=== PATIENT | male | born 1945 | race Caucasian/White ===

== ENCOUNTER → 2016-04-19 15:34 | Outpatient (CLI) | payer MEDICARE ==
[~2016-04-19 15:34] MED LIST: BENADRYL25 MG PO; CELEXA20 MG PO; ELIQUIS2.5 MG PO; NAPROSYN500 MG PO; NIACIN500 MG PO; OMEPRAZOLE20 M1 PO; OXYCODONE HCL5 MG PO; SYNTHROID112 MCG PO; ZESTRIL10 MG PO
[2016-05-22 09:38] VITALS: BMI 31.7
== END | disposition home or self-care (01) ==
LOC: D.LABREF 15:34
DX: M17.11 Unilateral primary osteoarthritis, right knee (principal); Z11.8 Encounter for screening for other infectious and parasitic diseases

== ENCOUNTER 2016-05-17 09:30 | Inpatient (IN) | payer MEDICARE ==
[~2016-05-17] VITALS: Ht 167.6 cm; Wt 89.1 kg
[2016-05-17 09:29] LABS: BASOPHILS 0.4 % (0.0-2.0); EOSINOPHILS 3.3 % (0-7); HEMATOCRIT 45.7 % (42.0-54.0); HEMOGLOBIN 15.4 g/dL (13.5-17.5); IMMATURE GRANULOCYTES 0.3 % (0-5); LYMPHOCYTES 18.1 % (15-50); MCH 29.1 pg (26.0-34.0); MCHC 33.7 g/dL (31.0-37.0); MCV 86.4 fL (80.0-100.0); MEAN PLATELET VOLUME 9.5 fL (7.4-10.4); MONOCYTES 9.4 % (2-11); NEUTROPHILS 68.5 % (40-80); PLATELET COUNT 204 10x3/uL (130-400); RBC 5.29 10x6/uL (4.20-6.10); RDW 13.8 % (11.5-14.5); WBC 7.4 10x3/uL (4.8-10.8)
[~2016-05-17 09:30] MED LIST changes: -ELIQUIS2.5 MG PO; -OXYCODONE HCL5 MG PO
[2016-05-17 09:41] LABS: APTT 32.3 SECONDS (22.8-39.4)
[2016-05-17 09:42] LABS: ANION GAP 10.8 mmol/L (8-16); CARBON DIOXIDE 30.3 mmol/L (21.0-32.0); CREATININE - SERUM 1.3 mg/dL (0.6-1.3); POTASSIUM - SERUM 4.1 mmol/L (3.5-5.1)
[2016-05-17 09:46] LABS: APPEARANCE CLEAR (CLEAR); BILIRUBIN NEGATIVE (NEGATIVE); COLOR YELLOW (YELLOW); GLUCOSE NEGATIVE (NEGATIVE); KETONE NEGATIVE (NEGATIVE); LEUKOCYTE ESTERASE NEGATIVE (NEGATIVE); NITRITE NEGATIVE (NEGATIVE); PROTEIN NEGATIVE (NEGATIVE); SPECIFIC GRAVITY 1.015 (1.005-1.020); UROBILINOGEN NORMAL (NORMAL)
[2016-05-22] VITALS (12 sets, daily range): BP systolic 101–133; BP diastolic 45–79; Ht 167.6 cm; Wt 89.1 kg
--- NOTE | 2016-05-22 08:59 | NUR ---
PRE OPERATIVE O2 PER ANESTHESIS WAS 93% WITHOUT O2.
--- NOTE | 2016-05-22 09:13 | NUR ---
RECEIVED TO ROOM 2210 FROM RECOVERY ROOM VIA BED. VSS. ON ROOM AIR AT THIS TIME. ORIENTED TO ROOM AND CALL LIGHT. SCDs TO BLE. ICE TO KNEE. BED ALARM TURNED ON. PASSWORD AND EMERGENCY CONTACT OBTAINED. FAMILY AT BEDSIDE. BREAKFAST TRAY ORDERED. IS GIVEN TO PATIENT AND EXPLAINED WITH RETURN DEMONSTRATION. CALL LIGHT IN REACH. WILL CONTINUE WITH PLAN OF CARE.
--- NOTE | 2016-05-22 09:47 | NUR ---
AM MEDS ADMINISTERED PER ORDER. CALL LIGHT IN REACH.
--- NOTE | 2016-05-22 10:19 | NUR ---
ARTURO MARSH, IN ROOM.
--- NOTE | 2016-05-22 11:23 | NUR ---
ASSISTED PATIENT WITH TURNING ON HIS LEFT SIDE. ALSO COUGHED AND DEEP BREATH.
--- NOTE | 2016-05-22 12:55 | NUR ---
ANCEF 1 GM IVPB. TYLENOL AND PROTONIX PO. CALL LIGHT IN REACH.
--- NOTE | 2016-05-22 12:58 | NUR ---
VOIDED 150 CC IN URINAL.
--- NOTE | 2016-05-22 14:29 | NUR ---
* Is the patient Alert and Oriented? Yes 0 * How many steps to enter\exit or inside your home? 0 0 * PCP Dr. Ochoa 0 * Pharmacy [facility] in [place] 0 * Preadmission Environment Home with Family 0 * ADLs Independent 0 * Equipment Cane Rolling Walker Shower Chair 0 * List name and contact numbers for known caregivers / representatives who currently or will assist patient after discharge: Spouse - Tootie [phone] 0 * Additional services required to return to the preadmission environment? Yes 0 * Can the patient safely return to the preadmission environment? Yes 0 * Has this patient been hospitalized within the prior 30 days at any hospital? No 05/22/2016 14:29 DCP: Discharge Planning Patient Name: RUSS JOHN Admission Status: Elective Accout number: [id number] Admission Date: 05-22-2016 : 1945 Admission Diagnosis: Attending: JOSE DAVID Current LOS: 1 Anticipated DC Date: 05-24-2016 Planned Disposition: Outpatient PT\OT Primary Insurance: [employer] ADV Discharge Planning Comments: CM met with patient to assess dc plans/needs. Patient lives at home with his , Tootie. He reports he is independent with all ADL's & IADL's. He has a rolling walker, cane and shower chair at home. At dc, he will return home with his . He has chosen [facility] for outpatient physical therapy - appt. scheduled for 05/28 @ 1330. Anticipate dc 05/24. CM will follow. Parking Enforcement Technician: Yanely Colvin
--- NOTE | 2016-05-22 14:46 | NUR ---
STATES PAIN IS UP TO AN 8. TORADOL 15 MG SIVP PER SCHEDULE. IF PAIN DOES NOT GO DOWN WILL GIVE OXY IR
--- NOTE | 2016-05-22 15:36 | NUR ---
PAIN IS NOW AT A 4. WILL GIVE OXY IR ONE HOUR BEFORE CPM.
--- NOTE | 2016-05-22 17:05 | NUR ---
OXY IR 10 MG AND TYLENOL PO. CALL LIGHT IN REACH.
--- NOTE | 2016-05-22 18:07 | NUR ---
NO CHANGES IN INITILA ASSESSMENT. BED ALARM ON. CPM PLACED ON. SCDs TO BLE. CALL LIGHT IN REACH. ICE PACK REFILLED. WILL CONTINUE WITH PLAN OF CARE.
[2016-05-23] VITALS: BP 108/55
[2016-05-23 04:00] VITALS: BP 109/51
--- NOTE | 2016-05-23 04:37 | NUR ---
PATIENT ON CPM. BROUGHT PATIENT WATER PER HIS REQUEST. PATIENT DENIES OTHER NEEDS AT THIS TIME. BED IN LOWEST POSITION AND CALL LIGHT WITHIN REACH.
[2016-05-23 06:12] LABS: HEMATOCRIT 39.2 % (42.0-54.0); HEMOGLOBIN 12.7 g/dL (13.5-17.5); MCH 28.2 pg (26.0-34.0); MCHC 32.4 g/dL (31.0-37.0); MCV 87.1 fL (80.0-100.0); MEAN PLATELET VOLUME 9.8 fL (7.4-10.4); PLATELET COUNT 187 10x3/uL (130-400); RDW 13.6 % (11.5-14.5)
[2016-05-23 06:37] LABS: ANION GAP 12.6 mmol/L (8-16); CALCIUM 8.1 mg/dL (8.5-10.1); CREATININE - SERUM 1.6 mg/dL (0.6-1.3); POTASSIUM - SERUM 4.6 mmol/L (3.5-5.1)
[2016-05-23 06:38] LABS: ALBUMIN 3.2 g/dL (3.4-5.0); BILIRUBIN - TOTAL 0.38 mg/dL (0.2-1.3)
--- NOTE | 2016-05-23 07:30 | NUR ---
REPORT RECEIVED FROM COMPUTED TOMOGRAPHY TECHNICIAN NURSE. CALL LIGHT IN REACH.
[2016-05-23 08:02] LABS: LYMPHOCYTES 9 % (15-50); MONOCYTES 8 % (2-11); NEUTROPHILS 81 % (40-80)
[2016-05-23 08:03] LABS: ANISOCYTOSIS OCC; PLATELET ESTIMATE NORMAL; ROULEAUX OCC
[2016-05-23 08:15] VITALS: BP 91/40
--- NOTE | 2016-05-23 08:36 | NUR ---
ASSESSMENT COMPLETED. AM MEDS ADMINISTERED. IV SL'D PER ORDER. SCDs TO BLE. BED ALARM ON. MARTA CONTINUE WITH PLAN OF CARE.
--- NOTE | 2016-05-23 10:21 | NUR ---
pt seen and assessed for wage adjuster note. currently up in chair with spouse at bedside. right knee wrapped with radhames wrap able to move toes freely and are warm and pink. states pain level 0/10. call light in reach
[2016-05-23 12:26] VITALS: BP 98/45
--- NOTE | 2016-05-23 12:40 | NUR ---
SITTING IN CHAIR PER PT EATING LUNCH. WILL GET BACK IN BED AFTER HE WALKS AGAIN.
--- NOTE | 2016-05-23 14:59 | NUR ---
TORADOL 15 MG SIVP PER ORDER. ASSISTED BACK TO BED. CALL LIGHT IN REACH.
[2016-05-23 15:40] VITALS: BP 113/60
--- NOTE | 2016-05-23 16:30 | NUR ---
DENIES NEEDS AT THIS TIME. CALL LIGHT IN REACH.
--- NOTE | 2016-05-23 18:00 | NUR ---
CPM ON. URINE SAMPLE COLLECTED AND SENT TO LAB. NO CHANGES IN INITIAL ASSESSMENT. ICE PACK FILLED. SCDs TO BLE. BED ALARM ON. CALL LIGHT IN REACH. WILL CONTINUE WITH PLAN OF CARE.
[2016-05-23 18:53] LABS: APPEARANCE CLEAR (CLEAR); BILIRUBIN NEGATIVE (NEGATIVE); COLOR YELLOW (YELLOW); GLUCOSE NEGATIVE (NEGATIVE); KETONE NEGATIVE (NEGATIVE); LEUKOCYTE ESTERASE NEGATIVE (NEGATIVE); NITRITE NEGATIVE (NEGATIVE); PROTEIN NEGATIVE (NEGATIVE); UROBILINOGEN NORMAL (NORMAL)
[2016-05-23 19:00] VITALS: BP 105/50
--- NOTE | 2016-05-23 19:50 | NUR ---
PATIENT RESTING IN BED AND STATED HE HAS NO PAIN AT THIS TIME. CALL LIGHT WITHIN REACH AND BED IN LOWEST POSITION.
[2016-05-24] VITALS: BP 109/62
--- NOTE | 2016-05-24 00:23 | NUR ---
RECIEVED PT LYING IN BED RESTING WITH EYES CLOSED, NO DISTRESS NOTED, SR'S UP, CL IN REACH
--- NOTE | 2016-05-24 01:16 | NUR ---
PRN OXY IR GIVEN FOR C/O R KNEE PAIN 08/08, FRANK WELL, DENIES FURTHER NEEDS, CL IN REACH
[2016-05-24 04:00] VITALS: BP 115/64
[2016-05-24 05:42] LABS: BASOPHILS 0.3 % (0.0-2.0); EOSINOPHILS 2.5 % (0-7); HEMATOCRIT 38.5 % (42.0-54.0); HEMOGLOBIN 12.3 g/dL (13.5-17.5); IMMATURE GRANULOCYTES 0.2 % (0-5); LYMPHOCYTES 14.6 % (15-50); MCH 28.1 pg (26.0-34.0); MCHC 31.9 g/dL (31.0-37.0); MCV 88.1 fL (80.0-100.0); MEAN PLATELET VOLUME 10.1 fL (7.4-10.4); MONOCYTES 11.3 % (2-11); NEUTROPHILS 71.1 % (40-80); PLATELET COUNT 178 10x3/uL (130-400); RBC 4.37 10x6/uL (4.20-6.10)
[2016-05-24 05:58] LABS: WBC 10.3 10x3/uL (4.8-10.8)
[2016-05-24 06:04] LABS: ALBUMIN 2.9 g/dL (3.4-5.0); BILIRUBIN - TOTAL 0.4 mg/dL (0.2-1.3); CALCIUM 8.1 mg/dL (8.5-10.1); CARBON DIOXIDE 29.2 mmol/L (21.0-32.0); CREATININE - SERUM 1.5 mg/dL (0.6-1.3); POTASSIUM - SERUM 4.2 mmol/L (3.5-5.1); PROTEIN - SERUM 6.3 g/dL (6.4-8.2)
[2016-05-24] MEDS ORDERED: OXYCODONE HCL5 MG PO (07:53)
[2016-05-24] MEDS ORDERED: ELIQUIS2.5 MG PO (07:53)
[2016-05-24 08:02] VITALS: BP 124/71
--- NOTE | 2016-05-24 08:37 | NUR ---
05/24/2016 8:37 DCP: Discharge Planning Patient Name: RUSS JOHN Encounter No: [id number] : 1945 Primary Insurance: [employer] ADV Anticipated DC Date: 05-24-2016 Planned Disposition: Outpatient PT\OT External Planned Provider: [facility] DCP follow-up note: DC order rec'd. Patient and family in agreement with discharge plan. No changes to plan. Case management will follow and assist as needed. Yanely Colvin
--- NOTE | 2016-05-24 08:43 | NUR ---
AWAKE AND ALERT. ORIENTED X3. NO C/O AT THIS TIME. CPM REMOVED NOW. LUNGS ARE CLEAR BILATERALLY, NO COUGH NOTED. PATIENT REPORTS OCCASSIONAL PRODUCTIVE COUGH. SKIN IS INTACT WITHOUT REDNESS EXCEPT INCISION TO RIGHT KNEE WHICH HAS A DRY INTACT DRESSING IN PLACE. SCD'S IN PLACE. SL TO LEFT FOREARM PATENT WITHOUT REDNESS AT INSERTION SITE. DENIES NEEDS.
--- NOTE | 2016-05-24 09:30 | NUR ---
AMBULATED IN HALLWAY WITH PT USING RW. DID WELL. REQUESTED AND GIVEN 10MG OXY IR PO FOR C/O RIGHT KNEE PAIN LEVEL 10. WILL MONITOR.
--- NOTE | 2016-05-24 12:55 | NUR ---
DRESSING CHANGED TO RIGHT KNEE PER ORDERS. WILL D/C SOON.
--- NOTE | 2016-05-24 13:25 | NUR ---
DISCHARGED TO HOME AMBULATORY WITH FAMILY. DISCHARGE INSTRUCTIONS GIVEN BOTH VERBALLY AND WRITTEN. ALL QUESTIONS ANSWERED. PATIENT AND FAMILY VERBALIZED UNDERSTANDING OF SAME. NEEDED PRESCRIPTIONS GIVEN TO PATIENT.
--- NOTE | 2016-05-29 12:19 | HP ---
PATIENT: RUSS JOHN MEDICAL RECORD: [id number] ACCOUNT: [id number] LOCATION:D.MS [address] : [birth year] ADMISSION DATE: 05/22/16 HISTORY AND PHYSICAL EXAMINATION HISTORY OF PRESENT ILLNESS: This is a pleasant 70-year-old gentleman who has had increasing pain in his right knee. This has got to a juncture where he is no longer tolerating it. He has tried therapy, injections and he is not getting any better, wants to proceed now with surgery. He does not have any allergies. PAST SURGICAL HISTORY: He has a right knee scope, surgery for prostate cancer and a back surgery. SOCIAL HISTORY: He does not smoke and he does not drink. REVIEW OF SYSTEMS: Otherwise, negative. MEDICATIONS: He had been taking Benadryl, cephalexin, citalopram, Kenalog, lisinopril, Robaxin, Naprosyn, niacin and omeprazole. PHYSICAL EXAMINATION: VITAL SIGNS: His height is 5 feet 6 inches, his weighs 194, blood pressure 151/86, pulse is 68, BMI was 31.3. HEENT: Within normal limits. CARDIOVASCULAR: Regular rate and rhythm. LUNGS: Clear. ABDOMEN: Benign. 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 He has crepitus. His range of motion 0 to about 110 degrees. He has no ligamentous instability. He is neurovascularly intact. IMAGING: X-rays showing [id number] medially. ASSESSMENT: Right knee degenerative joint disease. PLAN: Right total knee arthroplasty. After discussion, we will get him admitted ____. TRANSINT:[id number] Voice Confirmation ID: [id number] DOCUMENT ID: [id number] KARLA COLLINS MD at 1219 CC: [id number] DICTATION DATE: 05/22/16 0852 PROSTHODONTIST/EDUCATOR: 05/22/16 1116 DIS IN 05/24/[address] [address]
--- NOTE | 2016-05-29 12:19 | OP ---
PATIENT NAME: RUSS JOHN MEDICAL RECORD: [id number] :[birth year] LOCATION:D.MS [address] ADMISSION DATE:05/22/16 SURGEON: KARLA LOPEZ MD DATE OF OPERATION: 05/22/2016 PREOPERATIVE DIAGNOSIS: Right knee degenerative joint disease. POSTOPERATIVE DIAGNOSIS: Right knee degenerative joint disease. PROCEDURE PERFORMED: Right total knee arthroplasty. SURGEON: Dustin Lopez MD. ANESTHESIA: General with a block for postop pain. CONDITION: The patient tolerated procedure well and was transferred to recovery room in stable condition at termination of the procedure. INDICATIONS: This is a pleasant 70-year-old gentleman with advanced degenerative changes of his right knee. This has gotten to a juncture where he is no longer tolerating the knee, wanted to proceed with the knee replacement. We did discuss the risks, benefits, and alternatives of this. He understood and wished to proceed. OPERATIVE REPORT: The patient was taken to the operating room, placed in supine position. Right knee was confirmed to be the correct knee. He has had the block placed preoperatively. His right knee was then prepped and draped after a timeout verifying it to be the correct site. After initial prep and drape, he had a secondary ChloraPrep and then Ioban dressing placement. The leg was exsanguinated and tourniquet was elevated to 350. Midline incision was made followed by a medial parapatellar incision. The fat pad was excised, the medial meniscus and lateral meniscus for better visualization. I then drilled into the femur, placed the guide and made a distal femoral cut and then sized the femur to 67.5 and made the rest of the distal femoral cuts. I then subluxed the tibia forward, took, placed the guide and made a proximal tibial cut. This was sized at a 71. I then placed my femur with the tibial tray, took it through range of motion and marking the rotation then went back and punched for a 71 tibia. I also took out posterior osteophytes. The backside of the patella was taken off and measured, this was a 31, the 3 peg holes were drilled. I then copiously irrigated, following which I cemented into place a 67 femur, 71 tibia with a 31 three peg hole patellar button. He was held in extension while the cement dried. Once the cement was dry, he was irrigated and final 14 poly was placed. He was closed with #1 suture followed by 2-0 Vicryl followed by rome. He tolerated this well, was awakened and transferred to recovery in stable condition, having tolerated the procedure well. TRANSINT:[id number] Voice Confirmation ID: [id number] DOCUMENT ID: [id number] OPERATIVE REPORT [id number] RUSS JOHN, KARLA LOPEZ MD at 1219 CC: [id number] DICTATION DATE: 05/22/16 0851 CHESS INSTRUCTOR: 05/22/16 1517 DIS IN 05/24/16 [facility] [address] [place] [address]
--- NOTE | 2016-06-12 16:33 | DS ---
PATIENT:RUSS JOHN :[birth year] MEDICAL RECORD: [id number] DISCHARGE SUMMARY ADMISSION DATE: 05/22/16 DISCHARGE DATE: 05/24/16 DATE OF ADMISSION: 05/22/2016 DATE OF DISCHARGE: 05/24/2016 ADMITTING DIAGNOSIS: Right knee degenerative joint disease. DISCHARGE DIAGNOSIS: Right knee degenerative joint disease. PROCEDURE PERFORMED: A right total knee arthroplasty. HOSPITAL COURSE: A pleasant 70-year-old gentleman, who presents with right knee DJD. This has been getting progressively worse. He is no longer tolerating nonoperative treatments. He is admitted for right total knee arthroplasty. This procedure went well. He was felt by the second day that he be discharged and continue with home outpatient physical therapy. He is going to continue on his anticoagulation therapy on pain medicines and his protocols for continued knee rehabilitation. He understood wound care as well, his discharge diagnoses being right knee degenerative joint disease and postop acute blood loss anemia. Plan is to see me back in the office in about 2 weeks. He is to call if he is having any problems. TRANSINT:[id number] Voice Confirmation ID: [id number] DOCUMENT ID: [id number] KARLA COLLINS MD at 1633 CC: [id number] DICTATION DATE: 06/05/16 1014 COOLING TOWER OPERATOR: 06/05/168 DIS IN 05/24/16 [facility] [address] [place] [address]
== END 2016-05-24 13:25 | disposition home or self-care (01) | DRG 470 ==
LOC: D.SDCHOLD 05-22 06:32 → D.MS 05-22 06:32 → D.SDCHOLD 05-22 07:00 → D.MS 05-22 08:36 → D.SDCHOLD 05-22 09:30 → D.MS 05-24 13:25
PROVIDERS: Family Medicine; ADMIT Orthopaedic Surgery Sports Medicine
PROC: 0SRC0J9 Replacement of Right Knee Joint with Synthetic Substitute, Cemented, Open Approach (ICD-10-PCS; principal; 2016-05-22 07:30)
DX: M17.11 Unilateral primary osteoarthritis, right knee (principal); D62 Acute posthemorrhagic anemia; M25.761 Osteophyte, right knee; E03.9 Hypothyroidism, unspecified; I10 Essential (primary) hypertension; E06.3 Autoimmune thyroiditis; M54.5 Low back pain; K21.9 Gastro-esophageal reflux disease without esophagitis; E78.5 Hyperlipidemia, unspecified

== ENCOUNTER → 2016-09-24 14:35 | Outpatient (CLI) | payer MEDICARE ==
[2016-05-22 09:38] VITALS: BMI 31.7
[~2016-09-24 14:35] MED LIST changes: +ELIQUIS2.5 MG PO; +OXYCODONE HCL5 MG PO
== END | disposition home or self-care (01) ==
LOC: D.US 14:30
DX: M79.661 Pain in right lower leg (principal); R60.0 Localized edema

== ENCOUNTER 2019-01-13 22:59 | Observation (INO) | payer OTHER ==
[~2019-01-13] VITALS: Ht 167.6 cm; Wt 86.4 kg
[~2019-01-13 22:59] MED LIST changes: +AUGMENTIN 875-11 TAB PO; +PLAVIX75 MG PO
[2019-01-13 23:58] LABS: HEMATOCRIT 42.9 % (42.0-54.0); HEMOGLOBIN 14.9 g/dL (13.5-17.5); LYMPHOCYTES 8.7 % (15-50); MCH 29.6 pg (26.0-34.0); MCHC 34.7 g/dL (31.0-37.0); MCV 85.1 fL (80.0-100.0); MEAN PLATELET VOLUME 9.8 fL (7.4-10.4); NEUTROPHILS 88.1 % (40-80); RBC 5.04 10x6/uL (4.20-6.10); RDW 12.9 % (11.5-14.5); WBC 12.1 10x3/uL (4.8-10.8)
[2019-01-13 23:59] LABS: PLATELET COUNT 171 10x3/uL (130-400)
[2019-01-14 00:06] LABS: INR 1.02 (0.85-1.17); PROTIME 12.9 SECONDS (11.6-15.0)
[2019-01-14 00:07] LABS: ALBUMIN 3.9 g/dL (3.4-5.0); ALKALINE PHOSPHATASE 90 U/L (46-116); ALT (SGPT) 36 U/L (10-68); BILIRUBIN - TOTAL 0.36 mg/dL (0.2-1.3); CALC OSMOLALITY 285 mosm/kg (275-300); CALCIUM 8.7 mg/dL (8.5-10.1); CARBON DIOXIDE 27.7 mmol/L (21.0-32.0); CHLORIDE - SERUM 105 mmol/L (98-107); CREATININE - SERUM 1.5 mg/dL (0.6-1.3); POTASSIUM - SERUM 4.7 mmol/L (3.5-5.1); PROTEIN - SERUM 7.5 g/dL (6.4-8.2); SODIUM 139 mmol/L (136-145); UREA NITROGEN 20 mg/dL (7-18); eGFR NON AFRICAN AMERICAN 49 mL/min (90-120)
[2019-01-14 00:08] LABS: GLUCOSE 183 mg/dL (74-106)
[2019-01-14 00:20] LABS: CKMB 2.6 U/L (0.0-3.6); CREATINE KINASE 141 UL (21-232); MAGNESIUM - SERUM 2.1 mg/dL (1.8-2.4); TROPONIN-I < 0.017 ng/mL (0.000-0.060)
[2019-01-14 02:57] VITALS: Ht 167.6 cm; Wt 86.4 kg
--- NOTE | 2019-01-14 07:48 | NUR ---
AWAKE AND ORIENTED. DENIES ANY NEEDS. TELEMERTY SHOWS SR. RIGHT AC SL. NPO UNTILL SEEN BY DOCTOR. UP AB GABRIELLE. WILL MONITOR
[2019-01-14 09:13] VITALS: BP 114/66
--- NOTE | 2019-01-14 10:14 | HP ---
PATIENT: RUSS YODER MEDICAL RECORD: [id number] ACCOUNT: [id number] LOCATION:[address] : [birth year] ADMISSION DATE: 01/14/19 PCP: No PCP HISTORY AND PHYSICAL EXAMINATION DIAGNOSES: 1. Chest pain. 2. Coronary artery disease. 3. Previous percutaneous transluminal coronary angioplasty stent. 4. Gastroesophageal reflux disease. 5. Hypertension. 6. Nausea and vomiting. 7. Shortness of breath, dyspnea on exertion. HISTORY OF PRESENT ILLNESS: Mr. Yoder has a past history of coronary artery disease with myocardial infarction and PTCA stent approximately 2 years ago. He did well until yesterday. Early in the day, he noticed that he was significantly more short of breath and dyspneic. He then developed nausea and vomiting. After that, he developed chest discomfort. He does have a history of GERD. The chest discomfort was similar to the discomfort he had with his myocardial infarction; however, not nearly as bad. He had then multiple episodes of vomiting, chest discomfort worsened. He was given nitro in the Emergency Room and his chest discomfort abated. He was given Zofran. He had no further nausea and vomiting. His troponin is normal. His EKG is with no ST-T changes. PHYSICAL EXAMINATION: CONSTITUTIONAL/GENERAL APPEARANCE: Well nourished, well developed, appears stated age. EYES: Lids and conjunctivae noninjected. No discharge. No pallor. ENT: Lips within normal limit. No cyanosis. No pallor. NECK: Carotid arteries, bilateral normal upstroke. No bruits. No thrills. No jugular venous pressure or distention. CERVICAL LYMPH NODES: Nontender. Nonenlarged. THYROID: Not enlarged. No nodules. CARDIOVASCULAR: Precordial exam, nondisplaced. No heaves or pericardial thrills. Rate and rhythm, regular. Heart sounds, normal S1, normal S2. No S3, no gallop, no rub. Systolic murmur, not heard. Diastolic murmur, not heard. RESPIRATORY: Respiratory effort, unlabored. Normal curvature. No thoracic deformity. No chest wall tenderness. Percussion, resonant. Auscultation, clear. No wheezes, no rales, no rhonchi. ABDOMEN: Soft, nondistended, nontender. No abdominal pain, no vomiting and normal appetite. MUSCULOSKELETAL: No joint tenderness, normal gait, normal tone. SKIN: Warm and dry. OVERALL IMPRESSION: Chest discomfort, difficult to say if this is acid reflux from the nausea and vomiting or if this was actually the nausea, vomiting from unstable anginal symptomatology. Certainly, the shortness of breath would not be explained by any GI symptomatology, risk stratify with stress testing. Further care depends upon the findings of the stress test. TRANSINT:[id number] Voice Confirmation ID: [id number] DOCUMENT ID: [id number] HISTORY AND PHYSICAL [id number] RUSS YODER JEFFREY MD at 1014 CC: [id number] DICTATION DATE: 01/14/19926 THREADER OPERATOR: 01/14/19 1011 ADM IN [facility] [address] [place] [address]
--- NOTE | 2019-01-14 10:58 | NUR ---
NO FLU SHOT GIVEN PER ADMISSION HX PATIENT STATES TO RECEIVING ONE.
--- NOTE | 2019-01-14 12:27 | NUR ---
I have reviewed this patient and I concur with the Shift Assessment completed by the Licensed Practical Nurse today this shift.
--- NOTE | 2019-01-14 12:41 | NUR ---
PT HAS BEEN DISCHARGED. IV DCD WITH TIP INTACT. TO PRIVATE CAR PER WHEELCHAIR
--- NOTE | 2019-01-15 08:04 | MORECARE ---
CASE MANAGEMENT DISCHARGE SUMMARY PATIENT: RUSS JOHN UNIT: [id number] ADM DATE: 01/14/19 AGE: 73 : [birth year] SEX: M ROOM/BED: D.2130 AUTHOR: VERONICA AREVALO PHYSICIAN: REFERRING PHYSICIAN: ANSELMO MCCURDY MD DATE OF SERVICE: 01/15/19 Discharge Plan Patient Name: RUSS JOHN [facility] [facility] 1945 Planned Disposition: Home Anticipated Discharge Date: 01/14/19 Discharge Date: 01/14/2019 Expected LOS: 1 Initial Reviewer: [email or web address] Initial Review Date: 01/15/2019 Generated: 01/15/19 9:04 am Patient Name: RUSS JOHN Page [id number] at 0804 All edits/amendments must be made on the electronic document DICTATION DATE: 01/15/19803 WATER PLANT PUMP OPERATOR: DESIRAE 01/15/19803 RPT#: [id number] DC DATE:01/14/19 STATUS: DIS IN [facility] [address] [facility] [place] [address] END OF REPORT
--- NOTE | 2019-01-16 13:29 | DS ---
PATIENT:RUSS YODER :45 MEDICAL RECORD: [id number] DISCHARGE SUMMARY ADMISSION DATE: 01/14/19 DISCHARGE DATE: 01/14/19 DISCHARGE DIAGNOSES: 1. Chest pain. 2. Coronary artery disease. 3. Nausea and vomiting. HOSPITAL COURSE: Mr. Yoder had episodes of chest pain, but only after nausea, vomiting. Exercise stress test was normal. Most likely, the chest discomfort was secondary to the esophageal acid reflux at this time, no change in cardiac medications. Keep previous cardiac followup. TRANSINT:[id number] Voice Confirmation ID: [id number] DOCUMENT ID: [id number] ANSELMO MCCURDY MD at 1329 CC: [id number] DICTATION DATE: 01/14/19 1016 DIRECTOR OF ACCOUNTS PAYABLE: 01/15/19 0220 DIS IN 01/14/19 [facility] [address] [place] [address]
--- NOTE | 2019-01-16 13:29 | ST ---
PATIENT:RUSS JOHN MEDICAL RECORD: [id number] SEX: M LOCATION:D. D.213 ORDER #: ADMISSION DATE: 01/14/19 AGE OF PATIENT: 73 REFERRING PHYSICIAN: INTERPRETING PHYSICIAN: ANSELMO MCCURDY MD DATE OF SERVICE: 01/14/2019 PROCEDURE: Exercise stress test. INDICATION: Chest pain. He was exercised on standard Joaquin protocol for 5 minutes achieving greater than 85% max target heart rate response with no EKG changes, no dysrhythmias, no anginal chest discomfort. OVERALL IMPRESSION: Negative for inducible ischemia at adequate cardiac workload. TRANSINT:[id number] Voice Confirmation ID: [id number] DOCUMENT ID: [id number] ANSELMO MCCURDY MD at 1329 CC: [id number] DICTATION DATE: 01/14/19 1016 LEATHER STITCHER: 01/15/19 0228 DIS IN 01/14/19 [facility] [address] [place] [address]
== END 2019-01-14 12:43 | disposition home or self-care (01) ==
LOC: D.ER 22:59 → D.M2 01-14 01:14 → OBSVTIME 01-14 01:14 → D.M2 01-14 12:43
PROVIDERS: Family Medicine; ADMIT Internal Medicine Interventional Cardiology; ATTEND Internal Medicine Interventional Cardiology
DX: R07.9 Chest pain, unspecified (principal); I25.10 Atherosclerotic heart disease of native coronary artery without angina pectoris; R11.2 Nausea with vomiting, unspecified; K21.9 Gastro-esophageal reflux disease without esophagitis; I10 Essential (primary) hypertension; R06.02 Shortness of breath; Z95.5 Presence of coronary angioplasty implant and graft